=== PATIENT | male | born 2000 | race Caucasian/White ===

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

== ENCOUNTER 2021-01-18 09:07 | Outpatient (CLI) | payer OTHER, SELFPAY ==
--- NOTE | 2021-01-18 08:45 | DI.RAD_ITS ---
EXAM: XR FOREARM RT INDICATION: fx R forearm. COMPARISON: None TECHNIQUE: 2D digital imaging was performed. FINDINGS: There is a screw and plate fixation in the distal to mid radius spanning a mainly transverse fractur e. The alignment is anatomic. An ulnar styloid fracture is seen. The elbow and carpal bones are un remarkable. DATA REPOSITORY: RADIATION DOSE DELIVERED:
== END 2021-01-18 09:08 | disposition home or self-care (01) ==
LOC: DIORS 09:07
PROVIDERS: PCP Pediatrics; Referring Provider Pediatrics; Visit Provider Physician Assistant
DX: S52.371A Galeazzi's fracture of right radius, initial encounter for closed fracture (principal); S52.611A Displaced fracture of right ulna styloid process, initial encounter for closed fracture
CPT/HCPCS: 73090

== ENCOUNTER 2021-02-22 10:42 | Outpatient (CLI) | payer OTHER, SELFPAY ==
--- NOTE | 2021-02-22 08:15 | DI.RAD_ITS ---
Exam(s) XR FOREARM RT EXAM: XR FOREARM RT CLINICAL HISTORY: F/U FRACTURE TECHNIQUE: COMPARISON: CR XR FOREARM RT from 01/18/2021 FINDINGS: Two views were obtained and show previously described plate and screw fixation of mid radial fracture , no change in alignment comparison with examination of January 18. Ulnar styloid fracture again not ed as well. IMPRESSION: RADIATION DOSE DELIVERED: Total DLP
== END 2021-02-22 10:43 | disposition home or self-care (01) ==
LOC: DIORS 10:42
PROVIDERS: PCP Pediatrics; Visit Provider Student in an Organized Health Care Education/Training Program
DX: S52.611D Displaced fracture of right ulna styloid process, subsequent encounter for closed fracture with routine healing (principal); S52.371D Galeazzi's fracture of right radius, subsequent encounter for closed fracture with routine healing
CPT/HCPCS: 73090

== ENCOUNTER 2021-08-27 14:05 | Outpatient (REF) | payer OTHER, SELFPAY ==
[2021-08-28 17:15] LABS: COVID-19 RT-PCR UVMMC Result Negative (Negative)
== END 2021-08-27 14:06 | disposition home or self-care (01) ==
LOC: LBN 14:05
PROVIDERS: PCP Pediatrics; Visit Provider Physician Assistant
DX: Z20.822 Contact with and (suspected) exposure to COVID-19 (principal); J32.9 Chronic sinusitis, unspecified
CPT/HCPCS: U0003